=== PATIENT | female | born 1990 | race Caucasian/White ===

== ENCOUNTER 2016-06-04 09:13 | Emergency (ER) | payer OTHER ==
[2016-06-04 09:26] VITALS: BMI 22.1
[2016-06-04 09:27] VITALS: BP 128/76; PULSE 93; RESP 16; TEMP 99.2; O2SAT 99
--- NOTE | 2016-06-04 09:39 | ED PDOC ---
Arrival/HPI - General Chief Complaint: ENT Problem Time Seen by Provider: 06/04/16 09:34 Historian: Patient - History of Present Illness Narrative History of Present Illness (Text): 06/04/16 09:39 25-year-old female presents today with a 2 day history of sore throat and subjective fevers at home. Patient denies cough. Complaining of some nasal congestion with postnasal drip. Patient states she is able to eat and drink. No medications have been taken for pain at home. Patient denies vomiting or diarrhea. No abdominal pain. Denies ear pain. Denies sick contacts at home. Patient states the throat feels irritated. Patient states the pain is worse first thing in the morning. Past Medical History - Provider Review Nursing Documentation Reviewed: Yes - Travel History Have you recently traveled outside [place] w/in the past 3 mons?: No - Infectious Disease Hx of Infectious Diseases: None - Cardiac Hx Cardiac Disorders: No - Pulmonary Hx Respiratory Disorders: No - Neurological Hx Neurological Disorder: No - HEENT Hx HEENT Disorder: No - Renal Hx Renal Disorder: No - Endocrine/Metabolic Hx Endocrine Disorders: No - Hematological/Oncological Hx Blood Disorders: No - Integumentary Hx Dermatological Disorder: No - Musculoskeletal/Rheumatological Hx Musculoskeletal Disorders: No - Gastrointestinal Hx Gastrointestinal Disorders: No - Genitourinary/Gynecological Hx Genitourinary Disorders: Yes Hx Sexually Transmitted Diseases: Yes - Psychiatric Hx Psychophysiologic Disorder: No Hx Substance Use: No - Anesthesia Hx Anesthesia: No Hx Anesthesia Reactions: No Hx Malignant Hyperthermia: No Family/Social History - Physician Review Nursing Documentation Reviewed: Yes Family/Social History: Unknown Family HX Smoking Status: Never Smoked Hx Alcohol Use: No Hx Substance Use: No Allergies/Home Meds Allergies/Adverse Reactions: Allergies No Known Allergies Allergy (Verified 06/04/16 09:27) Home Medications: Home Meds Medication Instructions Recorded Confirmed Cyanocobalamin [Vitamin B12] 0 mcg PO DAILY 06/04/16 06/04/16 Lactobacillus Combination No.8 1 tab PO DAILY 06/04/16 06/04/16 [Adult Probiotic] metroNIDAZOLE [Flagyl] 500 mg PO BID 06/04/16 06/04/16 Review of Systems - Review of Systems Constitutional: absent: Fatigue, Fevers ENT: Sore Throat, Sinus Congestion Respiratory: absent: SOB, Cough Cardiovascular: absent: Chest Pain, Palpitations Gastrointestinal: absent: Abdominal Pain, Nausea, Vomiting Neurological: absent: Headache, Dizziness Physical Exam Vital Signs Reviewed: Yes Vital Signs Temp Pulse Resp BP Pulse Ox 06/04/16 09:27 99.2 F 93 H 16 128/76 99 Temperature: Afebrile Blood Pressure: Normal Pulse: Regular Respiratory Rate: Normal Appearance: Positive for: Well-Appearing, Non-Toxic, Comfortable Pain Distress: None Mental Status: Positive for: Alert and Oriented X 3 - Systems Exam Head: Present: Atraumatic Conjunctiva: Present: Normal Ears: Present: Normal, NORMAL TM, Normal Canal. No: Erythema, TM Perf Mouth: Present: Moist Mucous Membranes, Normal Lips, Normal Tounge. No: Drooling, Trismus Pharnyx: Present: ERYTHEMA. No: EXUDATE, TONSILS ENLARGED, Peritonsilar Swelling, Uvular Deviation, Muffled/Hoarse Voice, Strider, Soft Palate/Uvular Edema Nose (External): Present: Atraumatic Nose (Internal): Present: Normal Inspection Neck: Present: Normal Range of Motion, Trachea Midline. No: Lymphadenopathy Respiratory/Chest: Present: Clear to Auscultation, Good Air Exchange. No: Respiratory Distress, Accessory Muscle Use Cardiovascular: Present: Regular Rate and Rhythm, Normal S1, S2. No: Murmurs Neurological: Present: GCS=15, Speech Normal Skin: Present: Warm, Dry, Normal Color. No: Rashes Psychiatric: Present: Alert, Oriented x 3 Medical Decision Making ED Course and Treatment: 06/04/16 09:41 Patient is nontoxic well appearing in no distress. Vital signs are stable Tolerating p.o. fluids and solids Motrin 600 mg p.o. amoxicillin 500mg po Patient reassessment: Patient feeling better after medications, vital signs stable. Moist mucous membranes. I advised follow up with primary care physician within the next 2 days, advised to increase fluids take medications as prescribed and return if symptoms worsen persist or if new symptoms develop IMPRESSION; pharyngitis Motrin every 6 hours as needed for pain/fever reduction Increase fluids Amoxicillin: One tablet 3 times daily x10 days Follow up primary care physician within the next 2 days Saltwater gargles, throat lozenges Return if symptoms worsen persist or if the symptoms develop; high fevers, increasing pain, swelling, difficulty breathing or swallowing or if any other concerning symptoms develop. Disposition/Present on Arrival - Present on Arrival Any Indicators Present on Arrival: No History of DVT/PE: No History of Uncontrolled Diabetes: No Urinary Catheter: No History of Decub. Ulcer: No History Surgical Site Infection Following: None - Disposition Have Diagnosis and Disposition been Completed?: Yes Diagnosis: Pharyngitis Disposition: HOME/ ROUTINE Disposition Time: 09:35 Patient Plan: Discharge Patient Problems: Current Active Problems Problem Status Diagnosed Pharyngitis Acute Condition: GOOD Discharge Instructions (ExitCare): Pharyngitis (ED) Additional Instructions: Motrin every 6 hours as needed for pain/fever reduction Increase fluids Amoxicillin: One tablet 3 times daily x10 days Follow up primary care physician within the next 2 days Saltwater gargles, throat lozenges Return if symptoms worsen persist or if the symptoms develop; high fevers, increasing pain, swelling, difficulty breathing or swallowing or if any other concerning symptoms develop. Prescriptions: Amoxicillin 500 mg PO TID #30 tab Ibuprofen [Motrin] 600 mg PO Q6H PRN #20 tab PRN Reason: pain/fever reduction Referrals: Rubén Jimenez DO [Staff Provider] - [place] up [place] [facility] [place] - Follow up with primary Jenny Dominique MD [Staff Provider] - Follow up with primary Forms: WORK NOTE
== END 2016-06-04 09:50 | disposition home or self-care (01) ==
LOC: ED 09:13
DX: J02.9 Acute pharyngitis, unspecified (principal)

== ENCOUNTER 2016-08-17 09:14 | Emergency (ER) | payer OTHER ==
[2016-08-17 09:16] VITALS: BMI 21.4
[2016-08-17 09:31] VITALS: TEMP 98.8; O2SAT 99
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
[2016-08-17 10:07] LABS: URINE BILIRUBIN SMALL (NEGATIVE); URINE BLOOD TRACE-INTACT (NEGATIVE); URINE GLUCOSE (UA) NEGATIVE (NEGATIVE); URINE LEUKOCYTE ESTERASE NEGATIVE Leu/uL (NEGATIVE); URINE NITRATE NEGATIVE (NEGATIVE); URINE PROTEIN 30 mg/dL (<30 mg/dL); URINE UROBILINOGEN 0.2 E.U./dL (<1 E.U./dL)
[2016-08-17 10:08] LABS: URINE APPEARANCE CLOUDY (CLEAR); URINE COLOR YELLOW (YELLOW)
[2016-08-17 10:17] LABS: URINE BACTERIA MANY (NEG); URINE EPITHELIAL CELLS MANY /hpf (0-5)
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
[2016-08-17 11:44] VITALS: BP 126/75; PULSE 85; RESP 18
== END 2016-08-17 12:30 | disposition home or self-care (01) ==
LOC: ED 09:14
DX: F07.81 Postconcussional syndrome (principal); Y04.0XXA Assault by unarmed brawl or fight, initial encounter; Y93.89 Activity, other specified; Y92.89 Other specified places as the place of occurrence of the external cause

== ENCOUNTER 2018-06-14 21:43 | Emergency (ER) | payer SELFPAY ==
[2018-06-14 22:16] VITALS: BMI 25.7
[2018-06-14 22:19] VITALS: O2SAT 100
[2018-06-14] MEDS ORDERED: Sodium Chloride 0.9% 1,000 ML IV SCH (22:30)
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
[2018-06-14 23:11] LABS: BASO # 0.01 K/mm3 (0.0-2.0); BASO % 0.1 % (0.0-3.0); EOS # 0.1 (0.0-0.7); EOS % 1.3 % (1.5-5.0); LYMPH # 1.8 (1.2-3.4); LYMPH % 22.3 % (22.0-35.0); MEAN CELL VOLUME 78.5 fl (80.0-105.0); MEAN CORPUSCULAR HGB CONC 31.8 g/dl (31.0-37.0); MEAN PLATELET VOLUME 9.7 fl (7.0-11.0); MONO # 0.6 (0.1-0.6); MONO % 7.1 % (1.0-6.0); RBC 4.8 10^6/uL (3.5-6.1); RED CELL DISTRIBUTION WIDTH 13.8 % (11.5-14.5); WHITE BLOOD COUNT 7.9 10^3/uL (4.5-11.0)
[2018-06-14 23:12] LABS: PH,URINE 6.5 (4.7-8.0); URINE BILIRUBIN NEGATIVE (NEGATIVE); URINE BLOOD SMALL (NEGATIVE); URINE GLUCOSE (UA) NEGATIVE (NEGATIVE); URINE LEUKOCYTE ESTERASE TRACE Leu/uL (NEGATIVE); URINE PROTEIN TRACE mg/dL (<30 mg/dL); URINE UROBILINOGEN 0.2 E.U./dL (<1 E.U./dL)
[2018-06-14 23:17] LABS: URINE APPEARANCE SL CLOUDY (CLEAR); URINE COLOR YELLOW (YELLOW)
[2018-06-14 23:22] LABS: ALB/GLOB RATIO 1.3 (1.1-1.8); ALBUMIN 4.5 g/dL (3.0-4.8); ALT/SGPT 8 U/L (7-56); AST/SGOT 24 U/L (14-36); BLOOD UREA NITROGEN 14 mg/dL (7-21); CALCIUM 9.7 mg/dL (8.4-10.5); GFR NON-AFRICAN AMERICAN > 60
[2018-06-14] MEDS ORDERED: Potassium Chloride 20 mEq ER Tab PO STA (23:24)
[2018-06-14 23:25] LABS: URINE BACTERIA MOD /hpf
[2018-06-14 23:35] LABS: FREE T4 0.96 ng/dL (0.78-2.19)
[2018-06-15 02:02] VITALS: BP 102/75; PULSE 92; RESP 13
[2018-06-15 02:03] VITALS: TEMP 98
--- NOTE | 2018-06-15 10:03 | US ---
Date of service: 06/14/2018 HISTORY: IUP LMP 05/16/2018. COMPARISON: None available. TECHNIQUE: Transvaginal only. Real -time technique with 2D, duplex and color Doppler FINDINGS: UTERUS: Measures 5.5 x 7.3 x 9.7 cm. Normal in size and appearance. No fibroid or other mass lesion seen. ENDOMETRIUM: Measures 33.4 mm in diameter. Endometrial hypertrophy. Neither focal nor diffuse endometrial abnormalities detected. CERVIX: No cervical abnormality identified. RIGHT OVARY: Measures 2.8 x 2.8 x 1.9 cm. No solid mass. Normal flow. LEFT OVARY: Not visible FREE FLUID: No significant free fluid noted. OTHER FINDINGS: None. IMPRESSION: Marked endometrial hypertrophy. No visible products of conception. Unremarkable uterus, right adnexa. Limitations of the current examination: Nondiagnostic study of the left adnexa.
== END 2018-06-15 02:02 | disposition home or self-care (01) ==
LOC: ED 21:43
DX: O23.41 Unspecified infection of urinary tract in pregnancy, first trimester (principal); Z3A.01 Less than 8 weeks gestation of pregnancy
CPT/HCPCS: 76817; 80053; 81001; 81025; 84439; 84443; 84702; 85025; 87086; 96360; 96361; 99283; J7030